=== PATIENT | female | born 1955 | race Caucasian/White ===

== ENCOUNTER 2018-01-08 01:05 | Outpatient (CLI) | payer OTHER, SELFPAY ==
[2018-01-08 08:55] LABS: Hemoglobin A1C 7.3 % (4.5-6.2)
== END 2018-01-08 01:25 ==
PROVIDERS: PCP Family Medicine; Visit Provider Family Medicine
DX: E11.9 Type 2 diabetes mellitus without complications (principal)
CPT/HCPCS: 36415; 83036

== ENCOUNTER 2018-02-02 09:40 | Day surgery (SDC) | payer OTHER, SELFPAY ==
[2018-02-02 10:07] VITALS: BP 178/83; PULSE 67; RESP 18; TEMP 37; O2SAT 97
[2018-02-02] MEDS: Lactated Ringers 1,000 ML 30 ML IV (10:17)
--- NOTE | 2018-02-02 11:10 | W.COLOREPORT ---
Date of service: 02/02/18 Time of Service: 13:33 Colonoscopy Report Date of procedure: 02/02/18 Pre-op diagnosis general: Family history of colorectal cancer Post-op diagnosis procedure note: other (Normal colon to the cecum) Procedure: Colonoscopy to the cecum Surgeon: Earnest Spangler Anesthesia proc note operative: MAC (Carlos Helm CRNA; ASA 2, Mallampati class II) Estimated blood loss (mL): 0 Pathology: none sent Disposition: same day Indications: 62-year-old woman presenting for colorectal cancer screening with family history of colorectal cancer. Her father had colon cancer. Her last colonoscopy was 2012 and unremarkable. She has been asymptomatic since her last colonoscopy except for more complaints of constipation. The colonoscopy procedure was reviewed with her, and the risks discussed. All her questions were answered to her satisfaction. Consent was obtained to proceed with colonoscopy. Prep: Miralax/Dulcolax (Prep quality good) Findings: In examining the colon from cecum to anus, no abnormalities were found Procedure Description: The patient was seen in the day surgery waiting area. Her identification was confirmed, and procedure check. She was then brought to the procedure room. Monitoring for telemetry, blood pressure, oxygen saturation, and end tidal CO2 monitoring were applied. An appropriate time out was performed to confirm, identification, allergies, medication, procedure, was performed. Sedation was titrated for affect by the BUSINESS ADVISOR; Once adequate sedation was achieved, I performed a inspection of the external perineum, and a digitial rectal examination. No significant external abnormalities were noted. On digital rectal examination, there was no blood, no masses, good rectal tone. I advanced the colonoscope from the anus to the cecum under direct visualization. The cecum was identified by the ileal-cecal valve, and the appendiceal orifice. The scope was then withdrawn in circumferential manner from the cecum to the rectum. No abnormalites were noted in the colon. The scope was then withdrawn into the rectum, and retroflexed. No abnormalities were noted of the rectum or anorectal junction. The scope was then withdrawn, terminating the procedure. There were no complications during the procedure, and the patient tolerated the procedure well. She was returned to the day surgery recovery area in good condition. Plan: Will continue with routine screening for colorectal cancer according to current consensus guidelines, which is currently 5 years with a family history of colorectal cancer
--- NOTE | 2018-02-02 13:37 | W.PM.DSUDISC ---
Discharge Plan Disposition Patient Disposition: HOME Condition: Good Discharge Details Reason For Visit: Family history of colon cancer Attending Provider: Earnest Spangler Primary Care Provider: Deana William Home Meds and New Rx's Prescriptions: Continue atorvastatin 20 mg tablet 20 mg PO DAILY RF: 0 metformin 1,000 mg tablet 1,000 mg PO BID Qty: 180 RF: 12 blood sugar diagnostic [OneTouch Ultra Test] 1 EACH strip 1 ea Miscellaneous DAILY Qty: 100 RF: 3 lancets [OneTouch Delica Lancets] 1 EACH misc 1 ea Miscellaneous DAILY Qty: 100 RF: 3 aspirin [Aspirin Low-Strength] 81 MG tablet,chewable 81 mg PO DAILY RF: 0 losartan-hydrochlorothiazide 1 EACH tablet 1 tab-cap PO DAILY Qty: 90 RF: 12 Discharge Instructions Instructions: Colonoscopy (DC) Activity:: Activity as Tolerated Diet:: As Tolerated Discharge Orders Discharge Orders: Discharge Order (Routine); Ordered 02/02/18 Ordered By: Earnest Spangler DS: Diagnosis Discharge Diagnosis (1) Family history of colon cancer in father: Status: Acute Asessment and Plan: Colonoscopy performed: Colonoscopy Report Date of procedure: 02/02/18 Pre-op diagnosis general: Family history of colorectal cancer Post-op diagnosis procedure note: other (Normal colon to the cecum) Procedure: Colonoscopy to the cecum Surgeon: Earnest Spangler Anesthesia proc note operative: MAC (Carlos Helm CRNA; ASA 2, Mallampati class II) Estimated blood loss (mL): 0 Pathology: none sent Disposition: same day Indications: 62-year-old woman presenting for colorectal cancer screening with family history of colorectal cancer. Her father had colon cancer. Her last colonoscopy was 2012 and unremarkable. She has been asymptomatic since her last colonoscopy except for more complaints of constipation. The colonoscopy procedure was reviewed with her, and the risks discussed. All her questions were answered to her satisfaction. Consent was obtained to proceed with colonoscopy. Prep: Miralax/Dulcolax (Prep quality good) Findings: In examining the colon from cecum to anus, no abnormalities were found Procedure Description: The patient was seen in the day surgery waiting area. Her identification was confirmed, and procedure check. She was then brought to the procedure room. Monitoring for telemetry, blood pressure, oxygen saturation, and end tidal CO2 monitoring were applied. An appropriate time out was performed to confirm, identification, allergies, medication, procedure, was performed. Sedation was titrated for affect by the SKIN CARE CONSULTANT; Once adequate sedation was achieved, I performed a inspection of the external perineum, and a digitial rectal examination. No significant external abnormalities were noted. On digital rectal examination, there was no blood, no masses, good rectal tone. I advanced the colonoscope from the anus to the cecum under direct visualization. The cecum was identified by the ileal-cecal valve, and the appendiceal orifice. The scope was then withdrawn in circumferential manner from the cecum to the rectum. No abnormalites were noted in the colon. The scope was then withdrawn into the rectum, and retroflexed. No abnormalities were noted of the rectum or anorectal junction. The scope was then withdrawn, terminating the procedure. There were no complications during the procedure, and the patient tolerated the procedure well. She was returned to the day surgery recovery area in good condition. Plan: Will continue with routine screening for colorectal cancer according to current consensus guidelines, which is currently 5 years with a family history of colorectal cancer.
[2018-02-02 13:59] VITALS: BP 142/83; PULSE 63; RESP 16; TEMP 36.9; O2SAT 95
== END 2018-02-02 14:25 | disposition home or self-care (01) ==
PROVIDERS: PCP Family Medicine; Visit Provider Surgery
PROC: 0DJD8ZZ Inspection of Lower Intestinal Tract, Via Natural or Artificial Opening Endoscopic (ICD-10-PCS; CPT 45378; principal; 2018-02-02 11:45)
DX: Z12.11 Encounter for screening for malignant neoplasm of colon (principal); Z80.0 Family history of malignant neoplasm of digestive organs; E11.9 Type 2 diabetes mellitus without complications; Z79.84 Long term (current) use of oral hypoglycemic drugs; I10 Essential (primary) hypertension
CPT/HCPCS: 45378; J2250; J3010

== ENCOUNTER 2018-06-01 02:28 | Outpatient (CLI) | payer OTHER, SELFPAY ==
[2018-06-01 10:09] LABS: Hemoglobin A1C 6.8 % (4.5-6.2)
== END 2018-06-01 02:48 ==
PROVIDERS: PCP Family Medicine; Visit Provider Family Medicine
DX: E11.9 Type 2 diabetes mellitus without complications (principal)
CPT/HCPCS: 83036

== ENCOUNTER 2018-06-15 00:32 | Outpatient (CLI) | payer OTHER, SELFPAY ==
--- NOTE | 2018-06-15 09:19 | DI.RAD_ITS ---
SYMPTOM/DIAGNOSIS: LT SHOULDER PAIN, M79.602, LT ARM PAIN LEFT SHOULDER: There is mild spurring at the tip of the acromion and AC joint. The axillary view is suboptimal. There is moderate spurring of the glenoid. The joint space appears well maintained. There is mild spurring at the greater tuberosity. No tendon or joint space calcifications are seen. The humeral head appears normally positioned. IMPRESSION: Mild to moderate degenerative changes.
== END 2018-06-15 00:52 ==
PROVIDERS: PCP Family Medicine; Visit Provider Family Medicine
DX: M79.602 Pain in left arm (principal); M25.512 Pain in left shoulder; M19.012 Primary osteoarthritis, left shoulder
CPT/HCPCS: 73030

== ENCOUNTER 2018-12-05 01:41 | Outpatient (CLI) | payer OTHER, SELFPAY ==
[2018-12-05 08:53] LABS: Hemoglobin A1C 7.1 % (4.5-6.2)
[2018-12-05 09:44] LABS: Microalb ug/mg Crea 4.6 ug/mg Cr
[2018-12-05 09:47] LABS: ALT 67 U/L (12-78); AST 37 U/L (15-37); Albumin 3.6 g/dL (3.4-5.0); Alkaline Phosphatase 101 U/L (46-116); Anion Gap 9.5 mmol/L (3-11); BUN 16 mg/dL (7-18); Bilirubin, Total 0.5 mg/dL (0.2-1.0); CO2 28.5 mmol/L (21.0-32.0); CREATININE 0.85 mg/dL (0.55-1.02); Calcium 9.1 mg/dL (8.5-10.1); Calculated LDL 97 mg/dL; Chloride 103 mmol/L (98-107); Cholesterol 159 mg/dL (50-200); Glucose 145 mg/dL (70-100); HDL Cholesterol 39 mg/dL (40-60); Potassium 4.2 mmol/L (3.5-5.1); Sodium 141 mmol/L (136-145); Total Protein 6.5 g/dL (6.4-8.2); Triglyceride 117 mg/dL (30-150)
== END 2018-12-05 02:01 ==
PROVIDERS: PCP Family Medicine; Visit Provider Family Medicine
DX: E11.9 Type 2 diabetes mellitus without complications (principal); I10 Essential (primary) hypertension; Z00.00 Encounter for general adult medical examination without abnormal findings
CPT/HCPCS: 36415; 80053; 80061; 83721; 82043; 82570; 83036

== ENCOUNTER 2019-01-25 00:08 | Outpatient (CLI) | payer OTHER, SELFPAY ==
--- NOTE | 2019-01-25 12:44 | DI.MAMMO_ITS ---
EXAM: MAMMO SCREENING CLINICAL HISTORY: screening Z12.39. TECHNIQUE: Mammograms were interpreted according to the usual protocol including computer analysis w [facility] CAD system, tomosynthesis and C-view imaging. FINDINGS: The breasts are heterogeneously dense. No dominant mass or clumped microcalcification identified in e ither breast. No change in appearance in comparison with previous examinations including January 04 IMPRESSION: No specific evidence of malignancy at this time. Routine screening examinations are suggested at year ly intervals in this age group according the ACS ACR guidelines. Category 1. Breast density, category C. BI-RADS Cat 1 - Negative. Breast Density - Category C - Heterogeneously dense.
== END 2019-01-25 00:28 ==
PROVIDERS: PCP Family Medicine; Visit Provider Family Medicine
DX: Z12.31 Encounter for screening mammogram for malignant neoplasm of breast (principal)
CPT/HCPCS: 77063; 77067

== ENCOUNTER 2019-05-27 01:54 | Outpatient (CLI) | payer OTHER, SELFPAY ==
[2019-05-27 08:51] LABS: Hemoglobin A1C 7.3 % (3.8-5.6)
== END 2019-05-27 02:14 ==
PROVIDERS: PCP Family Medicine; Visit Provider Family Medicine
DX: E11.9 Type 2 diabetes mellitus without complications (principal)
CPT/HCPCS: 36415; 83036

== ENCOUNTER 2020-03-04 00:22 | Outpatient (CLI) | payer OTHER, SELFPAY ==
[2020-03-06 23:56] LABS: Patient Race White; SARS-CoV-2 RNA Undetected (Undetected); SARS-CoV-2 Specimen Source Nasal
== END 2020-03-04 00:42 ==
PROVIDERS: PCP Family Medicine; Visit Provider Family Medicine
DX: Z11.59 Encounter for screening for other viral diseases (principal)
CPT/HCPCS: U0003

== ENCOUNTER 2020-03-11 02:49 | Outpatient (CLI) | payer OTHER, SELFPAY ==
[2020-03-11 08:53] LABS: Hemoglobin A1C 7.4 % (<5.7)
[2020-03-11 09:03] LABS: ALT 88 U/L (14-59); AST 49 U/L (15-37); Albumin 3.7 g/dL (3.4-5.0); Alkaline Phosphatase 98 U/L (46-116); Anion Gap 11.9 mmol/L (3-11); BUN 17 mg/dL (7-18); Bilirubin, Total 0.6 mg/dL (0.2-1.0); CO2 25.1 mmol/L (21.0-32.0); CREATININE 1.01 mg/dL (0.55-1.02); Calcium 8.8 mg/dL (8.5-10.1); Calculated LDL 97 mg/dL (<100); Chloride 107 mmol/L (98-107); Cholesterol 162 mg/dL (<200); Estimated GFR 55.18 (mL/min/1.73m2); Glucose 147 mg/dL (74-106); HDL Cholesterol 43 mg/dL (40-60); Potassium 4.4 mmol/L (3.5-5.1); Sodium 144 mmol/L (136-145); Total Protein 6.5 g/dL (6.4-8.2); Triglyceride 114 mg/dL (<150)
[2020-03-11 13:04] LABS: COMMENT (LAB VIEW ONLY) 90.03 mg/dL; Microalb ug/mg Crea 5.2 ug/mg Cr
== END 2020-03-11 03:09 ==
PROVIDERS: PCP Family Medicine; Visit Provider Family Medicine
DX: Z00.00 Encounter for general adult medical examination without abnormal findings (principal); I10 Essential (primary) hypertension; E78.00 Pure hypercholesterolemia, unspecified; E11.9 Type 2 diabetes mellitus without complications
CPT/HCPCS: 36415; 80053; 80061; 82043; 82570; 83036

== ENCOUNTER 2020-04-01 09:25 | Outpatient (CLI) | payer OTHER, SELFPAY ==
[2020-04-02 21:25] LABS: COVID-19 RT-PCR UVMMC Result Positive (Negative)
== END 2020-04-01 09:45 ==
PROVIDERS: PCP Family Medicine; Visit Provider Family Medicine
DX: Z20.828 Contact with and (suspected) exposure to other viral communicable diseases (principal)
CPT/HCPCS: U0003

== ENCOUNTER 2020-06-09 02:00 | Outpatient (CLI) | payer OTHER, SELFPAY ==
[2020-06-10 12:55] LABS: COVID-19 RT-PCR UVMMC Result Negative (Negative)
== END 2020-06-09 02:01 | disposition home or self-care (01) ==
LOC: LBO 02:00
PROVIDERS: PCP Family Medicine; Visit Provider Family Medicine
DX: Z20.822 Contact with and (suspected) exposure to COVID-19 (principal)
CPT/HCPCS: U0003

== ENCOUNTER 2020-07-03 03:14 | Outpatient (CLI) | payer OTHER, SELFPAY ==
[2020-07-04 14:22] LABS: COVID-19 RT-PCR UVMMC Result Negative (Negative)
== END 2020-07-03 03:15 | disposition home or self-care (01) ==
LOC: LBO 03:14
PROVIDERS: PCP Family Medicine; Visit Provider Family Medicine
DX: Z20.822 Contact with and (suspected) exposure to COVID-19 (principal)
CPT/HCPCS: U0003

== ENCOUNTER 2021-01-26 01:04 | Outpatient (CLI) | payer MEDICARE, OTHER, SELFPAY ==
--- NOTE | 2021-01-26 07:15 | DI.MAMMO_ITS ---
Exam(s) MAMMO SCREENING EXAM: MAMMO SCREENING CLINICAL HISTORY: screening,Z12.39. TECHNIQUE: Bilateral full field digital CC and MLO mammographic images were obtained with 3D tomosyn thesis and utilizing computer aided detection (CAD). COMPARISON: Prior mammograms dating back to 2012, the most recent being January 2019. FINDINGS: Fibroglandular tissue pattern is again noted be moderately dense, this decreasing the sensitivity holly mogram for finding hidden underlying lesions. Asymmetric density in the medial aspect of right breast is noted located 7 cm in from the nipple, med ial of center on the 3D cc imaging. More evident than on prior studies. There is a skin mole inferiorly in the right breast, unchanged from prior studies. No new malignant-appearing microcalcification groups in either breast. There is no significant architectural distortion nor skin thickening-retraction. IMPRESSION: 1. No radiographic evidence of malignancy in left breast. 2. Medial) asymmetric density in the right breast-possible nodule. Spot compression CC view and poss ible ultrasound recommended BI-RADS Category 0 - Assessment Incomplete: Need additional imaging evaluation Breast Density - Category C - Heterogeneously dense Breast density Category C or D implies that the patient has dense breast tissue. Dense breast tissue can make it harder to find cancer on a mammogram. Dense breast tissue is also associated with an incr eased risk of breast cancer. This information about the result of the mammogram report was provided to the patient to raise their awareness. Use this report when you speak with the patient about their risks for breast cancer, which includes their family history. At that time, you may recommend additional screening tests (Ultrasoun d or MRI) as these tests may add significant information. A negative radiographic report should not delay biopsy if a dominant or clinically suspicious mass is present. Up to ten percent of cancers are not identified on mammography. A negative report may reinforce clinical impression. Adenosis and dense breasts may obscure an underlying neoplasm. False positive reports average 6 to 10%. Patient will receive a letter notifying them of these results.
== END 2021-01-26 01:24 ==
PROVIDERS: PCP Family Medicine; Visit Provider Family Medicine
DX: Z12.31 Encounter for screening mammogram for malignant neoplasm of breast (principal); R92.8 Other abnormal and inconclusive findings on diagnostic imaging of breast
CPT/HCPCS: 77063; 77067

== ENCOUNTER 2021-02-04 02:10 | Outpatient (CLI) | payer MEDICARE, OTHER, SELFPAY ==
--- NOTE | 2021-02-04 | DI.MAMMO_ITS ---
Exam(s) MG MAMMO SCREEN CALL BACK UNI EXAM: MG MAMMO SCREEN CALL BACK UNI AND COMPLETE RIGHT BREAST ULTRASOUND CLINICAL HISTORY: F/U MAMMO, RT BREAST ASYMMETRIC DENSITY,MORE EVIDENT. TECHNIQUE: Unilateral spot mammographic images obtained with 3D tomosynthesisand utilizing computer aided detection (CAD). . Complete RIGHT breast Ultrasound was also performed, including all 4 quadrants, the retroareolar abdelrahman on, and the ipsilateral axilla. COMPARISON: Prior mammograms were reviewed. This additional imaging was performed due to findings described on the recent screening mammogram of 02/04/21. FINDINGS: Additional mammographic views performed todayrender this area less concerning. Ultrasound performed today reveals a finding at 3-4 o'clock position which has the appearance of a 9 x 4 millimeter conglomeration microcyst. This may correspond to the finding on the mammogram (which i s less impressive on spot compression view today). There are no other focal findings on ultrasound of all 4 quadrants nor in the immediate retroareolar region. Scanning of the ipsilateral axilla is negative for adenopathy.. IMPRESSION: Benign-appearing findings in the right breast as described above. Appropriate follow-up is repeat right breast mammogram and ultrasound in 6 months.. The patient was informed of these findings and recommendations prior to leaving the department today. BI-RADS Category 3 - 6 month - Probably Benign Finding: Recommend follow-up mammography in 6 months Breast Density - Category C - Heterogeneously dense Breast density Category C or D implies that the patient has dense breast tissue. Dense breast tissue can make it harder to find cancer on a mammogram. Dense breast tissue is also associated with an incr eased risk of breast cancer. This information about the result of the mammogram report was provided to the patient to raise their awareness. Use this report when you speak with the patient about their risks for breast cancer, which includes their family history. At that time, you may recommend additional screening tests (Ultrasoun d or MRI) as these tests may add significant information. A negative radiographic report should not delay biopsy if a dominant or clinically suspicious mass is present. Up to ten percent of cancers are not identified on mammography. A negative report may reinforce clinical impression. Adenosis and dense breasts may obscure an underlying neoplasm. False positive reports average 6 to 10%. Patient will receive a letter notifying them of these results.
--- NOTE | 2021-02-04 | DI.US_ITS ---
Exam(s) US BREAST RT COMPLETE EXAM: US BREAST RT COMPLETE CLINICAL HISTORY: RT asymetric density. TECHNIQUE: Complete ultrasound of the right breast was performed including all 4 quadrants, the retr oareolar region, and the ipsilateral axilla. COMPARISON: Prior mammograms were reviewed. FINDINGS: At the 3-4 o'clock position there is a 9 x 4 millimeter conglomeration of microcysts. This may corres pond to the finding on the mammogram. There are no other focal findings in all 4 quadrants nor in the retroareolar region. No axillary adenopathy IMPRESSION: Benign-appearing findings Appropriate follow-up is repeat right breast imaging in 6 months to include repeat right breast mammo gram and ultrasound.. BI-RADS Category 3 - 6 month - Probably Benign Finding: Recommend follow-up mammography in 6 months Breast Density - Category C - Heterogeneously dense Breast density Category C or D implies that the patient has dense breast tissue. Dense breast tissue can make it harder to find cancer on a mammogram. Dense breast tissue is also associated with an incr eased risk of breast cancer. This information about the result of the mammogram report was provided to the patient to raise their awareness. Use this report when you speak with the patient about their risks for breast cancer, which includes their family history. At that time, you may recommend additional screening tests (Ultrasoun d or MRI) as these tests may add significant information. A negative radiographic report should not delay biopsy if a dominant or clinically suspicious mass is present. Up to ten percent of cancers are not identified on mammography. A negative report may reinforce clinical impression. Adenosis and dense breasts may obscure an underlying neoplasm. False positive reports average 6 to 10%. Patient will receive a letter notifying them of these re
== END 2021-02-04 02:30 ==
PROVIDERS: PCP Family Medicine; Visit Provider Family Medicine
DX: R92.8 Other abnormal and inconclusive findings on diagnostic imaging of breast (principal); N60.01 Solitary cyst of right breast
CPT/HCPCS: 76642; 77063; 77067

== ENCOUNTER 2021-10-25 02:56 | Outpatient (CLI) | payer MEDICARE, OTHER, SELFPAY ==
[2021-10-25 09:01] LABS: Hemoglobin A1C 6.9 % (<5.7)
[2021-10-25 09:39] LABS: ALT 72 U/L (14-59); AST 48 U/L (15-37); Albumin 3.7 g/dL (3.4-5.0); Alkaline Phosphatase 87 U/L (46-116); Anion Gap 10.3 mmol/L (3-11); BUN 19 mg/dL (7-18); Bilirubin, Total 0.7 mg/dL (0.2-1.0); CO2 28.7 mmol/L (21.0-32.0); CREATININE 0.9 mg/dL (0.55-1.02); Calcium 9.5 mg/dL (8.5-10.1); Calculated LDL 105 mg/dL (<100); Chloride 102 mmol/L (98-107); Cholesterol 175 mg/dL (<200); Glucose 143 mg/dL (74-106); HDL Cholesterol 46 mg/dL (40-60); Potassium 3.9 mmol/L (3.5-5.1); Sodium 141 mmol/L (136-145); Triglyceride 124 mg/dL (<150)
== END 2021-10-25 02:57 | disposition home or self-care (01) ==
LOC: LBO 02:56
PROVIDERS: PCP Family Medicine; Visit Provider Family Medicine
DX: I10 Essential (primary) hypertension (principal); E78.00 Pure hypercholesterolemia, unspecified; E11.9 Type 2 diabetes mellitus without complications
CPT/HCPCS: 36415; 80053; 80061; 83036

== ENCOUNTER 2022-08-26 00:43 | Outpatient (CLI) | payer MEDICARE, OTHER, SELFPAY ==
--- NOTE | 2022-08-26 09:43 | DI.RAD_ITS ---
Exam(s) XR RIBS RT W PA LAT CHEST CLINICAL HISTORY: RT RIB pain for 3 weeks, no improvement,R07.81. COMPARISON: CR XR shoulder LT complete 2+V from 06/15/2018 TECHNIQUE:: PA and lateral views of the chest and four views of the right ribs were performed. FINDINGS: LUNGS:Clear. No pleural abnormality seen. HEART: Normal. MEDIASTINUM: Normal. BONES: No displaced rib fracture is seen. No thoracic compression fracture. Degenerative changes no lashay in the spine and right shoulder pain no bony destructive lesion is seen. OTHER FINDINGS: None. IMPRESSION: 1. Unremarkable radiographic appearance of the right ribs. 2. No acute pulmonary findings.
== END 2022-08-26 01:03 ==
PROVIDERS: PCP Family Medicine; Visit Provider Nurse Practitioner Family
DX: R07.81 Pleurodynia (principal)
CPT/HCPCS: 71046; 71100

== ENCOUNTER 2022-11-18 06:25 | Day surgery (SDC) | payer MEDICARE, OTHER, SELFPAY ==
--- NOTE | 2022-11-18 06:24 | W.ANESPRE ---
General Info Date of Service Date Performed: 11/18/22 Height: 5 ft 6 in Weight: 99.1 kg Body Mass Index (BMI): 35.2 Surgical Procedure: Operation Date: 11/18/22 07:40 Proposed Procedure Side Surgeon p Cataract Extraction with IOL Implant Left Raghav Birmingham MD Meds Allergies and Home Medications Allergies Allergy/AdvReac Type Severity Reaction Status Date / Time lisinopril AdvReac Intermediate cough Verified 11/18/22 06:52 oxycodone HCl [From Percocet] AdvReac Mild Nausea Verified 11/18/22 06:52 Home Medication Medication Instructions Recorded blood sugar diagnostic (SimpleOrder #100 strips 02/21/13 Ultra Test strips) lancets 33 gauge (S[employer]iot[employer] PharmalabTouch Delica #100 ea 02/21/13 Lancets) aspirin 81 mg chewable tablet 81 mg PO DAILY 04/15/13 (Aspirin Low-Strength) ibuprofen 200 mg capsule 200 mg PO QID PRN 02/28/18 atorvastatin 20 mg tablet 20 mg PO DAILY #90 tabs 11/08/21 hydrochlorothiazide 12.5 mg tablet 12.5 mg PO QAM #90 tabs 11/08/21 losartan 50 mg tablet 50 mg PO DAILY #90 tabs 11/08/21 metformin 1,000 mg tablet 1,000 mg PO BID #180 tab-caps 11/08/21 cyclobenzaprine 5 mg tablet 5 mg PO TID PRN back pain #10 tabs 09/15/22 Current Visit Medications: Current Medications Generic Name Dose Route Start Last Admin Trade Name Freq PRN Reason Stop Dose Admin Acetaminophen 1,000 mg 11/18/22 06:00 Acetaminophen 500 Mg Tab PO 12/18/22 05:59 Q4H PRN PRN Balanced Salt Solution 500 ml 11/18/22 06:00 Balanced Salt Soln.-Plus 500 Ml Bag OP 12/18/22 05:59 DIRECTED NASEEM Miscellaneous Medication 0 ml 11/18/22 06:00 Prednisolone 1%, Moxifloxacin 0.5%, Nepafenac 0.1% 5ml Btl OS 12/18/22 05:59 DIRECTED NASEEM Miscellaneous Medication 0 ml 11/18/22 06:00 Tropicam./Phenyleph. (1/2.5%) 5 Ml Btl OS 12/18/22 05:59 DIRECTED NASEEM Tetracaine HCl 0 ml 11/18/22 06:00 Tetracaine 0.5% 4 Ml Btl OS 12/18/22 05:59 DIRECTED [facility] PFSH Active Problems Active Problems: Problem Status Onset Code Posterior subcapsular age-related cataract of left eye H25.042 Nuclear age-related cataract, left eye H25.12 Abnormal mammogram R92.8 Shoulder pain M25.519 Left arm pain M79.602 Annual physical exam Z00.00 Family history of colon cancer in father Z80.0 Lacunar infarction 02/28/13 I63.9 Internal hemorrhoids without complication 03/06/13 K64.8 Hypercholesterolemia 02/28/13 E78.00 Essential hypertension 06/25/13 I10 Diverticulosis of large intestine without diverticulitis 03/06/13 K57.30 Diabetes mellitus 02/12/13 E11.9 Medical History Medical History History of ankle fracture 04/17/12 closed reduction History of fracture of ankle Numbness 02/26/13 Numbness (02/26/13) Surgical History Surgical History Colonoscopy - MAC (03/05/13) [facility] Fracture, Closed Treatment (11/16/12) ANKLE H/O colonoscopy Dr Spangler, negative, repeat in five years due to family history of colon cancer. History of hysterectomy 04/17/83 History of hysterectomy Hysterectomy, Laproscopic (~1983) Tobacco Smoking/Tobacco Use Status: Never Passive smoking exposure: Yes Second hand exposure: Yes Alcohol Alcohol Intake: current Alcohol intake frequency: a few times a month Alcohol type: beer Substance Use Substance use: Never Substance use type: does not use Vital Signs and Lab Results Lab Results Blood Type / Crossmatch: No Data to Display Complete Blood Count: No Data to Display Complete Metabolic Panel: Hemoglobin A1c 6.9 % H 11/07/22 10:02 Liver Function Panel: No Data to Display Coagulation Panel: No Data to Display Cardiac Panel: No Data to Display Arterial Blood Gas: No Data to Display Venous Blood Gas: No Data to Display Pancreas Panel: No Data to Display Thyroid Panel: No Data to Display Infectious Disease: No Data to Display Blood Cultures: No Data to Display Toxicology Panel: No Data to Display Imaging and Studies Imaging and Studies Study information below may be from another EMR and interpreted by another provider. Please see original notes in EMR for more complete details. Echocardiogram Summary: ECHOCARDIOGRAM REPORT PATIENT NAME: IRA NARVAEZ AUNFELA #: [id number] ADMITTING PROVIDER: SAVANAH COLEMAN, MYATURNER #: [id number] PRIMARY CARE PROVIDER:DEANA WILLIAM MD, DCDATE OF SERVICE: 04/05/13 : 1955 DATE: April 05, 2013 OUT-PATIENT ORDERING PHYSICIAN: Dr. Deana William HEIGHT: 5 FT 6 IN WEIGHT: 200 LBS BSA: m2 STUDY INDICATIONS: Cerebrovascular accident, right sided weakness/numbness, 02/04/13. Hypertension. Borderline type II diabetes mellitus. FINDINGS: LEFT VENTRICLE/LVEF: Normal function. Ejection fraction 60-65%, mild concentric left ventricular hypertrophy. RIGHT VENTRICLE: Appears normal. AORTIC VALVE: Trileaflet, mildly sclerotic, no aortic regurgitation, no aortic stenosis, normal aortic root size. MITRAL VALVE: No mitral regurgitation, no mitral stenosis. TRICUSPID VALVE: Normal. RSV/PA/RIGHT ATRIAL PRESSURE: 10 + 5 = 15 mmHg. PULMONIC VALVE: Normal. ATRIA: Normal size. DIASTOLIC INDICES: E/E-prime lateral 5, medial 8. GREAT VESSELS: Within normal limits, normal aortic root size. PERICARDIUM: No effusion. Summary: Normal left ventricle. Ejection fraction 60-65%. Mild concentric left ventricular hypertrophy, no significant valvular abnormality. Normal atria. No previous study. Measurements: LVESD 23 mm LVEDD 39 mm IVS 10 mm PW 11 mm Ascending Aorta 33 mm AO. Root 34 mm AV 19 mm AO Velocity 1.4 m/sec LA 15 cm sq. RA 12 cm sq. Right atrial pressure 10 mmHg AV-PK/M 8/5 mmHg LVOT size 19 mm LVOT gradient 5/3 mmHg Deceleration time 164 msec Isovolumic relaxation time 83 msec E/A ratio 1.0 IVC collapses - Yes Sinus Rhythm. Dictated by: GORDO PAVON MD Dictated:: [id number]<Electronically signed by GORDO PAVON MD> Transcribed Date: 04/08/13 Transcribed Time: 1025By: This is privileged, confidential information, intended only for the provider named. Any use or distribution by any person other than this provider is strictly prohibited. If you receive this report in error, please notify us immediately at [phone] and return the original report to us at the address above. Thank you. Anesthesia Assessment and Plan Anesthesia History Personal History: PONV and Delayed Emergence Family History: Other Exercise Tolerance Exercise Tolerance: Metabolic Equivalents>4 Pertinent Negatives Pertinent Negatives: No Symptoms of GERD, No Major Cardiovascular Symptoms or Complaints and No Major Pulmonary Symptoms or Complaints Cardiac & Pulmonary Exam Cardiac Exam: Normal S1/S2 Heart Sounds Pulmonary Exam: Clear Bilateral Breath Sounds Implantable Cardiac Device Does patient have a Pacemaker or an ICD?: No Airway Exam Known Difficult Airway: No Mallampati Class: 2 Mouth Opening: Normal (> 3cm) Thyromental Distance: Greater than 3 cm Neck Range of Motion: Full ROM Neck Circumference: Normal Teeth Condition: Normal Dentition ASA Classification ASA Score: ASA 2 Emergency Case?: No NPO Status NPO Status: NPO Clears >2 hours, Solids >8 hours Anesthesia Plan Resuscitation Status: Full Code Anesthesia Technique: MAC Anesthesia Airway Planned: Natural Airway Monitors Used: Standard Monitors Preoperative Comments:: Discussed plan: no MKO
[2022-11-18 06:45] VITALS: BP 136/70; PULSE 74; RESP 16; TEMP 35.2; O2SAT 96
[2022-11-18] MEDS: Tropicam./Phenyleph. (1/2.5%) 5 ML BTL OS ×3 (06:50→07:06)
[2022-11-18 07:04] VITALS: BMI 35.2
[2022-11-18] MEDS: Lidocaine 1% Pres-Free 5 ML VIAL (07:49)
[2022-11-18] MEDS: Phenylephrine/Lidocaine (15/10) MG/ML 1 ML VIAL (07:50)
[2022-11-18] MEDS: Duovisc Viscoelastic System EACH 1 EACH (07:51)
[2022-11-18] MEDS: Povidone-Iodine Ophth 30 ML BTL (07:52)
[2022-11-18] MEDS: Balanced Salt Soln.-PLUS 500 ML BAG OP (07:52)
[2022-11-18] MEDS: Tetracaine 0.5% 4 ML BTL OS (07:53)
--- NOTE | 2022-11-18 07:58 | W.PM.DSUDISC ---
Date of service: 11/18/22 Time of Service: 07:58 Discharge Plan Disposition Patient Disposition: Home Discharge Details Attending Provider: Raghav Birmingham Primary Care Provider: Deana William Home Meds and New Rx's Prescriptions: No Action ibuprofen 200 mg capsule 200 mg PO QID PRN atorvastatin 20 mg tablet 20 mg PO DAILY Qty: 90 4RF hydrochlorothiazide 12.5 mg tablet 12.5 mg PO QAM Qty: 90 4RF losartan 50 mg tablet 50 mg PO DAILY Qty: 90 4RF metformin 1,000 mg tablet 1,000 mg PO BID Qty: 180 12RF Rx Instructions: hold until pt calls for renewal (DME) OneTouch Ultra Test 1 EACH strip 1 ea Miscellaneous DAILY Qty: 100 Rx Instructions: mini test strips Dx Diabetes 250.00 (DME) lancets [OneTouch Delica Lancets] 1 EACH misc 1 ea Miscellaneous DAILY Qty: 100 aspirin [Aspirin Low-Strength] 81 MG tablet,chewable 81 mg PO DAILY cyclobenzaprine 5 mg tablet 5 mg PO TID PRN (Reason: back pain) Qty: 10 0RF Discharge Instructions Stand Alone Forms: Post-op Topical Cataract, Tio Llamasey (DSU) Discharge Orders Discharge Orders: Discharge Order (Routine); Ordered 11/18/22 Ordered By: Raghav Birmingham DS: Diagnosis Discharge Diagnosis (1) Posterior subcapsular age-related cataract of left eye: Status: Resolved (2) Nuclear age-related cataract, left eye: Status: Resolved
--- NOTE | 2022-11-18 07:59 | ROE_ITS ---
Date of service: 11/18/22 Time of Service: 07:59 Operative Note Operative Note DATE OF PROCEDURE: 11/18/22 PRE-OP DIAGNOSIS: Nuclear/posterior subcapsular cataract, left eye POST-OP DIAGNOSIS: same PROCEDURE: Cataract extraction using phacoemulsification with intraocular lens implant, left eye SURGEON: Raghav Birmingham ANESTHESIA TYPE: Local By Surgeon and MAC Refer to Anesthesia Record PATHOLOGY: none sent COMPLICATIONS: None Patient was transported to: same day Patient's condition: stable Implants: Jesus Alberto and Jesus Alberto Tecnis Eyhance [id number] Indications: Progressive decreased vision due to cataract, left eye Procedure Description: CATARACT SURGERY OPERATIVE REPORT PREOPERATIVE DIAGNOSIS: 1. Nuclear/posterior subcapsular cataract, left eye POSTOPERATIVE DIAGNOSIS: Same OPERATION: 1. Cataract extraction using phacoemulsification with posterior chamber intraocular lens implant, left eye. IOL: IOL Retail Stocker/Model: Jesus Alberto & Jesus Alberto Tecnis Eyhance DIB00 IOL Power: + 24.0 diopters IOL Serial Number: [id number] Optic Diameter: 6.0 mm Haptic/Overall Diameter: 13.0 mm PHACO INFO: Piotr TissueInformaticsurion Vision System with OZil and Active Fluidics Cumulative Dispersed Energy (CDE): 11.46 seconds SURGEON: Raghav Birmingham MD, LEANA ANESTHESIA: Monitored A [facility] (MAC), with local sub-tenon's anesthetic infiltration COMPLICATIONS: None SPECIMENS: None INDICATIONS FOR PROCEDURE: The patient is a 67-year-old lady with history of diminished visual acuity in her left eye secondary to the development of nuclear/posterior subcapsular cataract. She is significantly symptomatic that she desires cataract surgery and attempt to improve and maximize her vision. See office notes for detailed information. PROCEDURE: The correct surgical eye was identified and marked as the left eye and the pupil was dilated in the preoperative area using mydriatics and cycloplegics. The dilated pupil size was 7.0 mm. The patient elected to proceed without oral sedation. The patient was brought to the operating room where cardiopulmonary monitoring was instituted and surgical time-out was performed, confirming the correct operative eye and IOL power. Topical anesthesia was administered and ophthalmic povidone-iodine 5% was instilled into the conjunctival fornices. The judson-ocular area was prepped with Betadine 10% solution and draped in the usual sterile fashion for intraocular surgery, including an aperture drape. A Tegaderm transparent film dressing was cut in half and used to cover the lashes and lid margins. Care was taken to sequester the lashes and lid margins under the Tegaderm dressing. A lid speculum was placed between the lids of the operative eye and the Piotr LuxOR Revalia operating microscope was maneuvered into position. Ton scissors were then used to make a conjunctival buttonhole approximately 6mm posterior to the limbus in the inferonasal quadrant. Blunt dissection was carried out to expose bare sclera, and a blunt-tipped sub-tenon?s anesthesia can nula was introduced and passed posteriorly along the globe where non-preserved plain lidocaine was injected into posterior sub-Tenon?s space. A sideport knife was used to make a paracentesis port. Intraocular phenylephrine/lidocaine was injected into the anterior chamber.. The anterior chamber was filled with viscoelastic. A keratome knife was used to construct a 2-plane near-clear corneal tunnel extending 2.0mm into clear cornea. A flap was raised on the anterior capsule and capsulorhexis forceps were used to complete a continuous curvilinear capsulorhexis of 5.0 mm. Balanced salt solution was then used to perform cortical cleaving hydrodissection and nuclear hydrodelineation until the lens could be freely rotated within the capsular bag. The lens nucleus was then disassembled and removed within the capsular bag and iris plane using phacoemulsification. Residual cortical material was removed using the irrigation/aspiration handpiece. The posterior capsule was carefully polished to remove as much residual lens epithelial cells as safely possible. The capsular bag was then inflated and the anterior chamber deepened with viscoelastic. The lens implant described above was inserted into the capsular bag using the Jesus Alberto and Jesus Alberto Simplicity pre-loaded injector. A Kuglen hook was used to dial the IOL into position. Residual viscoelastic was then removed first from posterior to the IOL, then from the anterior chamber using the I/A handpiece. The lens implant was noted to center nicely within the capsular bag. The incisions were stromally hydrated, and the anterior chamber was reformed using BSS. Then 0.5cc of moxifloxacin 1.0mg/ml were injected into the capsular bag and anterior chamber. The incisions were checked with a Weck spear and found to be secure. Several drops of ophthalmic povidone-iodine 5% were then applied to the eye followed by two drops of Imprimis combination prednisolone/moxifloxacin/nepafenac solution. The drapes were removed and a clear plastic protective eye shield was placed over the eye. The patient was then returned to Same Day Surgery in stable condition.
[2022-11-18 08:00] VITALS: BP 122/62; PULSE 68; RESP 16; TEMP 36.7; O2SAT 98
--- NOTE | 2022-11-18 08:22 | W.ANESPOSTOP ---
Postoperative Evaluation Date, Time and Location Date Performed: 11/18/22 Time Performed: 08:01 Patient Location: Day Surgery Unit Vital Signs Most Recent Imported Vital Signs: Most Recent Vital Signs Temp Pulse Resp BP Pulse Ox 36.7 C 68 16 122/62 98 11/18/22 08:00 11/18/22 08:00 11/18/22 08:00 11/18/22 08:00 11/18/22 08:00 Pain Score Most Recent Pain Score: Most Recent Pain Score Pain Level 0 11/18/22 08:00 Assessment Mental Status: Awake (Alert & Oriented to Patient Baseline) Airway and Respiratory Function: Patent airway with normal (patient baseline) respiratory exam Cardiovascular Function: Hemodynamically Stable Hydration Status: Adequately Hydrated Nausea & Vomiting: No Nausea or Vomiting Pain: Pt. Denies Any Pain Peripheral Nerve Block: Other (Local by Dr. Birmingham)
== END 2022-11-18 08:18 | disposition home or self-care (01) ==
LOC: SUR 06:25
PROVIDERS: PCP Family Medicine; Visit Provider Ophthalmology
PROC: (CPT 66984; principal; 2022-11-18 07:30)
DX: H25.042 Posterior subcapsular polar age-related cataract, left eye (principal); H25.12 Age-related nuclear cataract, left eye; I10 Essential (primary) hypertension
CPT/HCPCS: 66984; V2632

== ENCOUNTER 2022-12-02 06:31 | Day surgery (SDC) | payer MEDICARE, OTHER, SELFPAY ==
[2022-12-02 06:42] VITALS: BP 122/61; PULSE 82; RESP 16; TEMP 36.1; O2SAT 100
[2022-12-02] MEDS: Tropicam./Phenyleph. (1/2.5%) 5 ML BTL OD ×3 (06:55→07:05)
--- NOTE | 2022-12-02 07:00 | ANES.PREOP_ITS ---
General Info Date of Service Date Performed: 12/02/22 Height: 5 ft 6 in Weight: 100 kg Body Mass Index (BMI): 35.6 Surgical Procedure: Operation Date: 12/02/22 07:40 Proposed Procedure Side Surgeon p Cataract Extraction with IOL Implant Right Raghav Birmingham MD Meds Allergies and Home Medications Allergies Allergy/AdvReac Type Severity Reaction Status Date / Time lisinopril AdvReac Intermediate cough Verified 12/02/22 06:40 oxycodone HCl [From Percocet] AdvReac Mild Nausea Verified 12/02/22 06:40 Home Medication Medication Instructions Recorded blood sugar diagnostic ([employer] #100 strips 02/21/13 Ultra Test strips) lancets 33 gauge (SharingforceTouch Delica #100 ea 02/21/13 Lancets) aspirin 81 mg chewable tablet 81 mg PO DAILY 04/15/13 (Aspirin Low-Strength) ibuprofen 200 mg capsule 200 mg PO QID PRN 02/28/18 cyclobenzaprine 5 mg tablet 5 mg PO TID PRN back pain #10 tabs 09/15/22 atorvastatin 20 mg tablet 20 mg PO DAILY #90 tabs 11/24/22 hydrochlorothiazide 12.5 mg tablet 12.5 mg PO QAM #90 tabs 11/24/22 losartan 50 mg tablet 50 mg PO DAILY #90 tabs 11/24/22 metformin 1,000 mg tablet 1,000 mg PO BID #180 tab-caps 11/24/22 Current Visit Medications: Current Medications Generic Name Dose Route Start Last Admin Trade Name Freq PRN Reason Stop Dose Admin Acetaminophen 1,000 mg 12/02/22 06:00 Acetaminophen 500 Mg Tab PO 01/01/23 05:59 Q4H PRN PRN Balanced Salt Solution 500 ml 12/02/22 06:00 Balanced Salt Soln.-Plus 500 Ml Bag OP 01/01/23 05:59 DIRECTED NASEEM Miscellaneous Medication 0 ml 12/02/22 06:00 Prednisolone 1%, Moxifloxacin 0.5%, Nepafenac 0.1% 5ml Btl OD 01/01/23 05:59 DIRECTED NASEEM Miscellaneous Medication 0 ml 12/02/22 06:00 12/02/22 06:55 Tropicam./Phenyleph. (1/2.5%) 5 Ml Btl OD 01/01/23 05:59 1 drp DIRECTED NASEEM Administration Tetracaine HCl 0 ml 12/02/22 06:00 Tetracaine 0.5% 4 Ml Btl OD 01/01/23 05:59 DIRECTED NASEEM PFSH Active Problems Active Problems: Problem Status Onset Code Posterior subcapsular age-related cataract, right eye H25.041 Nuclear age-related cataract, right eye H25.11 Posterior subcapsular age-related cataract of left eye H25.042 Nuclear age-related cataract, left eye H25.12 Abnormal mammogram R92.8 Shoulder pain M25.519 Left arm pain M79.602 Annual physical exam Z00.00 Family history of colon cancer in father Z80.0 Lacunar infarction 02/28/13 I63.9 Internal hemorrhoids without complication 03/06/13 K64.8 Hypercholesterolemia 02/28/13 E78.00 Essential hypertension 06/25/13 I10 Diverticulosis of large intestine without diverticulitis 03/06/13 K57.30 Diabetes mellitus 02/12/13 E11.9 Medical History Medical History History of ankle fracture 04/17/12 closed reduction History of fracture of ankle Numbness 02/26/13 Numbness (02/26/13) Surgical History Surgical History Colonoscopy - MAC (03/05/13) [facility] Fracture, Closed Treatment (11/16/12) ANKLE H/O colonoscopy Dr Spangler, negative, repeat in five years due to family history of colon cancer. History of hysterectomy 04/17/83 History of hysterectomy Hysterectomy, Laproscopic (~1983) Tobacco Smoking/Tobacco Use Status: Never Passive smoking exposure: Yes Second hand exposure: Yes Alcohol Alcohol Intake: current Alcohol intake frequency: a few times a month Alcohol type: beer Substance Use Substance use: Never Substance use type: does not use Vital Signs and Lab Results Vital Signs Most Recent Vital Signs in EMR: Most Recent Vital Signs Temp Pulse Resp BP Pulse Ox 36.1 C L 82 16 122/61 100 12/02/22 06:42 12/02/22 06:42 12/02/22 06:42 12/02/22 06:42 12/02/22 06:42 Lab Results Blood Type / Crossmatch: No Data to Display Complete Blood Count: No Data to Display Complete Metabolic Panel: Hemoglobin A1c 6.9 % H 11/07/22 10:02 Liver Function Panel: No Data to Display Coagulation Panel: No Data to Display Cardiac Panel: No Data to Display Arterial Blood Gas: No Data to Display Venous Blood Gas: No Data to Display Pancreas Panel: No Data to Display Thyroid Panel: No Data to Display Infectious Disease: No Data to Display Blood Cultures: No Data to Display Toxicology Panel: No Data to Display Imaging and Studies Imaging and Studies Study information below may be from another EMR and interpreted by another provider. Please see original notes in EMR for more complete details. Echocardiogram Summary: ECHOCARDIOGRAM REPORT PATIENT NAME: IRA NARVAEZ AUNIT #: [id number] ADMITTING PROVIDER: SAVANAH COLEMAN, BETSEYCOUNT #: [id number] PRIMARY CARE PROVIDER:DEANA WILLIAM MD, DCDATE OF SERVICE: 04/05/13 : 1955 DATE: April 05, 2013 OUT-PATIENT ORDERING PHYSICIAN: Dr. Deana William HEIGHT: 5 FT 6 IN WEIGHT: 200 LBS BSA: m2 STUDY INDICATIONS: Cerebrovascular accident, right sided weakness/numbness, 02/04/13. Hypertension. Borderline type II diabetes mellitus. FINDINGS: LEFT VENTRICLE/LVEF: Normal function. Ejection fraction 60-65%, mild concentric left ventricular hypertrophy. RIGHT VENTRICLE: Appears normal. AORTIC VALVE: [place], mildly sclerotic, no aortic regurgitation, no aortic stenosis, normal aortic root size. MITRAL VALVE: No mitral regurgitation, no mitral stenosis. TRICUSPID VALVE: Normal. RSV/PA/RIGHT ATRIAL PRESSURE: 10 + 5 = 15 mmHg. PULMONIC VALVE: Normal. ATRIA: Normal size. DIASTOLIC INDICES: E/E-prime lateral 5, medial 8. GREAT VESSELS: Within normal limits, normal aortic root size. PERICARDIUM: No effusion. Summary: Normal left ventricle. Ejection fraction 60-65%. Mild concentric left ventricular hypertrophy, no significant valvular abnormality. Normal atria. No previous study. Measurements: LVESD 23 mm LVEDD 39 mm IVS 10 mm PW 11 mm Ascending Aorta 33 mm AO. Root 34 mm AV 19 mm AO Velocity 1.4 m/sec LA 15 cm sq. RA 12 cm sq. Right atrial pressure 10 mmHg AV-PK/M 8/5 mmHg LVOT size 19 mm LVOT gradient 5/3 mmHg Deceleration time 164 msec Isovolumic relaxation time 83 msec E/A ratio 1.0 IVC collapses - Yes Sinus Rhythm. Dictated by: GORDO PAVON MD Dictated:: [id number]<Electronically signed by GORDO PAVON MD> 06/12/[id number] Transcribed Date: 04/08/13 Transcribed Time: 1025By: This is privileged, confidential information, intended only for the provider named. Any use or distribution by any person other than this provider is strictly prohibited. If you receive this report in error, please notify us immediately at [phone] and return the original report to us at the address above. Thank you. Anesthesia Assessment and Plan Anesthesia History Personal History: Delayed Emergence Family History: No Family History of Anesthesia Complications Exercise Tolerance Exercise Tolerance: Metabolic Equivalents>4 Pertinent Negatives Pertinent Negatives: No Symptoms of GERD, No Major Cardiovascular Symptoms or Complaints and No Major Pulmonary Symptoms or Complaints Cardiac & Pulmonary Exam Cardiac Exam: Normal S1/S2 Heart Sounds Pulmonary Exam: Clear Bilateral Breath Sounds Implantable Cardiac Device Does patient have a Pacemaker or an ICD?: No Airway Exam Known Difficult Airway: No Mallampati Class: 2 Mouth Opening: Normal (> 3cm) Thyromental Distance: Greater than 3 cm Neck Range of Motion: Full ROM Neck Circumference: Normal Teeth Condition: Normal Dentition ASA Classification ASA Score: ASA 2 Emergency Case?: No NPO Status NPO Status: NPO Clears >2 hours, Solids >8 hours Anesthesia Plan Resuscitation Status: Full Code Anesthesia Technique: MAC Anesthesia Airway Planned: Natural Airway Monitors Used: Standard Monitors
[2022-12-02 07:03] VITALS: BMI 35.6
[2022-12-02] MEDS: Povidone-Iodine Ophth 30 ML BTL (07:29)
[2022-12-02] MEDS: Tetracaine 0.5% 4 ML BTL OD (07:29)
[2022-12-02] MEDS: Phenylephrine/Lidocaine (15/10) MG/ML 1 ML VIAL (07:31)
[2022-12-02] MEDS: Balanced Salt Soln.-PLUS 500 ML BAG OP (07:31)
[2022-12-02] MEDS: Lidocaine 1% Pres-Free 5 ML VIAL (07:31)
[2022-12-02] MEDS: Duovisc Viscoelastic System EACH 1 EACH (07:31)
--- NOTE | 2022-12-02 07:51 | W.PM.DSUDISC ---
Date of service: 12/02/22 Time of Service: 07:51 Discharge Plan Disposition Patient Disposition: Home Discharge Details Attending Provider: Raghav Birmingham Primary Care Provider: Deana William Home Meds and New Rx's Prescriptions: No Action ibuprofen 200 mg capsule 200 mg PO QID PRN (DME) OneTouch Ultra Test 1 EACH strip 1 ea Miscellaneous DAILY Qty: 100 Rx Instructions: mini test strips Dx Diabetes 250.00 (DME) lancets [OneTouch Delica Lancets] 1 EACH misc 1 ea Miscellaneous DAILY Qty: 100 aspirin [Aspirin Low-Strength] 81 MG tablet,chewable 81 mg PO DAILY cyclobenzaprine 5 mg tablet 5 mg PO TID PRN (Reason: back pain) Qty: 10 0RF hydrochlorothiazide 12.5 mg tablet 12.5 mg PO QAM Qty: 90 4RF atorvastatin 20 mg tablet 20 mg PO DAILY Qty: 90 4RF losartan 50 mg tablet 50 mg PO DAILY Qty: 90 4RF metformin 1,000 mg tablet 1,000 mg PO BID Qty: 180 12RF Rx Instructions: hold until pt calls for renewal Discharge Instructions Stand Alone Forms: Post-op Topical Cataract, Tio Plunkett (DSU) Discharge Orders Discharge Orders: Discharge Order (Routine); Ordered 12/02/22 Ordered By: Raghav Birmingham DS: Diagnosis Discharge Diagnosis (1) Posterior subcapsular age-related cataract, right eye: Status: Resolved (2) Nuclear age-related cataract, right eye: Status: Resolved
[2022-12-02 07:52] VITALS: BP 119/56; PULSE 78; RESP 16; TEMP 36.2; O2SAT 97
--- NOTE | 2022-12-02 07:52 | ROE_ITS ---
Date of service: 12/02/22 Time of Service: 07:52 Operative Note Operative Note DATE OF PROCEDURE: 12/02/22 PRE-OP DIAGNOSIS: Nuclear/posterior subcapsular cataract, right eye POST-OP DIAGNOSIS: same PROCEDURE: Cataract extraction using phacoemulsification with intraocular lens implant, right eye SURGEON: Raghav Birmingham ANESTHESIA TYPE: Local By Surgeon and MAC Refer to Anesthesia Record ESTIMATED BLOOD LOSS: 0 PATHOLOGY: none sent COMPLICATIONS: None Patient was transported to: same day Patient's condition: stable Implants: Jesus Alberto & Jesus Alberto Tecnis Eyhance DIB00 Indications: Progressive visual loss due to cataract, right eye Procedure Description: CATARACT SURGERY OPERATIVE REPORT PREOPERATIVE DIAGNOSIS: 1. Nuclear/posterior subcapsular cataract, right eye POSTOPERATIVE DIAGNOSIS: Same OPERATION: 1. Cataract extraction using phacoemulsification with posterior chamber intraocular lens implant, right eye. IOL: IOL Search Manager/Model: Jesus Alberto & Jesus Alberto Tecnis Eyhance DIB00 IOL Power: + 23.5 diopters IOL Serial Number: [id number] Optic Diameter: 6.0mm Haptic/Overall Diameter: 13.0mm PHACO INFO: Piotr Motionboxurion Vision System with OZil and Active Fluidics Cumulative Dispersed Energy (CDE): 7.60 seconds SURGEON: Raghav Birmingham MD, LEANA ANESTHESIA: Monitored Anesthesia Care (MAC), with local sub-tenon's anesthetic infiltration COMPLICATIONS: None SPECIMENS: None INDICATIONS FOR PROCEDURE: The patient is a 67-year-old lady with history of diminished visual acuity in both eyes secondary to the development of bilateral nuclear/posterior subcapsular cataract. She has already undergone cataract surgery in the left ey e and is doing well postoperatively. She now presents for cataract surgery in the right eye. See office notes for detailed information. PROCEDURE: The correct surgical eye was identified and marked as the right eye and the pupil was dilated in the preoperative area using mydriatics and cycloplegics. The dilated pupil size was 8.0 mm. The patient elected to proceed without oral sedation. The patient was brought to the operating room where cardiopulmonary monitoring was instituted and surgical time-out was performed, confirming the correct operative eye and IOL power. Topical anesthesia was administered and ophthalmic povidone-iodine 5% was instilled into the conjunctival fornices. The judson-ocular area was prepped with Betadine 10% solution and draped in the usual sterile fashion for intraocular surgery, including an aperture drape. A Tegaderm transparent film dressing was cut in half and used to cover the lashes and lid margins. Care was taken to sequester the lashes and lid margins under the Tegaderm dressing. A lid speculum was placed between the lids of the operative eye and the Piotr LuxOR Revalia operating microscope was maneuvered into position. Ton scissors were then used to make a conjunctival buttonhole approximately 6mm posterior to the limbus in the inferonasal quadrant. Blunt dissection was carried out to expose bare sclera, and a blunt-tipped sub-tenon?s anesthesia cannula was introduced and passed posteriorly along the globe where non- preserved plain lidocaine was injected into posterior sub-Tenon?s space. A sideport knife was used to make a paracentesis port. Intraocular phenylephrine/lidocaine was injected into the anterior chamber. The anterior chamber was filled with viscoelastic. A keratome knife was used to construct a 2-plane clear corneal tunnel extending 2.0mm into clear cornea. A flap was raised on the anterior capsule and capsulorhexis forceps were used to complete a continuous curvilinear capsulorhexis of 5.0 mm. Balanced salt solution was then used to perform cortical cleaving hydrodissection and nuclear hydrodelineation until the lens could be freely rotated within the capsular bag. The lens nucleus was then disassembled and removed within the capsular bag and iris plane using phacoemulsification. Residual cortical material was removed using the I/A handpiece. The posterior capsule was carefully polished to remove as much residual lens epithelial cells as safely possible. The capsular bag was then inflated and the anterior chamber deepened with cohesive viscoelastic. The lens implant described above was inserted into the capsular bag using the Jesus Alberto and Jr Simplicity pre- loaded injector. A Kuglen hook was used to dial the IOL into position. Residual viscoelastic was then removed first from posterior to the IOL, then from the anterior chamber using the I/A handpiece. The lens implant was noted to center nicely within the capsular bag. The incisions were stromally hydrated, and the anterior chamber was reformed using BSS. Then 0.5cc of moxifloxacin 1.0mg/ml were injected into the capsular bag and anterior chamber. The incisions were checked with a Weck spear and found to be secure. Several drops of ophthalmic povidone-iodine 5% were then applied to the eye followed by two drops of Imprimis combination prednisolone/moxifloxacin/nepafenac solution. The drapes were removed and a clear plastic protective eye shield was placed over the eye. The patient was then returned to Same Day Surgery in stable condition.
--- NOTE | 2022-12-02 08:08 | W.ANESPOSTOP ---
Postoperative Evaluation Date, Time and Location Date Performed: 12/02/22 Time Performed: 07:55 Patient Location: Day Surgery Unit Vital Signs Most Recent Imported Vital Signs: Most Recent Vital Signs Temp Pulse Resp BP Pulse Ox 36.2 C L 78 16 119/56 L 97 12/02/22 07:52 12/02/22 07:52 12/02/22 07:52 12/02/22 07:52 12/02/22 07:52 Pain Score Most Recent Pain Score: Most Recent Pain Score Pain Level 0 12/02/22 07:52 Assessment Mental Status: Awake (Alert & Oriented to Patient Baseline) Airway and Respiratory Function: Patent airway with normal (patient baseline) respiratory exam Cardiovascular Function: Hemodynamically Stable Hydration Status: Adequately Hydrated Nausea & Vomiting: No Nausea or Vomiting Pain: Pt. Denies Any Pain Peripheral Nerve Block: Patient did not receive a nerve block
== END 2022-12-02 08:07 | disposition home or self-care (01) ==
LOC: SUR 06:31
PROVIDERS: PCP Family Medicine; Visit Provider Ophthalmology
PROC: (CPT 66984; principal; 2022-12-02 07:30)
DX: H25.041 Posterior subcapsular polar age-related cataract, right eye (principal); H25.11 Age-related nuclear cataract, right eye; I10 Essential (primary) hypertension; E11.9 Type 2 diabetes mellitus without complications
CPT/HCPCS: 66984; V2632

== ENCOUNTER 2022-12-13 13:14 | Outpatient (REF) | payer MEDICARE, OTHER, SELFPAY ==
[2022-12-13 22:21] LABS: COMMENT (LAB VIEW ONLY) 119.61 mg/dL; Microalb ug/mg Crea 7.2 ug/mg Cr
== END 2022-12-13 13:15 | disposition home or self-care (01) ==
LOC: LBN 13:14
PROVIDERS: PCP Family Medicine; Visit Provider Family Medicine
DX: E11.9 Type 2 diabetes mellitus without complications (principal)
CPT/HCPCS: 82043; 82570

== ENCOUNTER → 2022-12-22 03:44 | Outpatient (CLI) | payer MEDICARE, OTHER, SELFPAY ==
--- NOTE | 2022-12-22 07:30 | DI.DEXA_ITS ---
Exam(s) XR DEXA BONE DENSITY W/WO ROCKY EXAM: XR DEXA BONE DENSITY W/WO ROCKY CLINICAL HISTORY: SCREENING FOR OSTEOPOROSIS IN POSTMENOPAUSAL WOMAN,Z78.0 TECHNIQUE: COMPARISON: No exams were available for comparison FINDINGS: Lateral Spine Image: Unremarkable. No compression deformities identified. Left hip: Total T-Score: 1.2 Total Z-Score: 2.6 T- and Z-scores: Within normal limits. Lumbar Spine: Total T-Score: 3.2 Total Z-Score: 5.1 T- and Z-scores: Within normal limits. IMPRESSION: No evidence of osteoporosis.
== END ==
PROVIDERS: PCP Family Medicine; Visit Provider Family Medicine
DX: Z78.0 Asymptomatic menopausal state (principal); Z13.820 Encounter for screening for osteoporosis
CPT/HCPCS: 36415; 77080; 80053; 80061

== ENCOUNTER 2022-12-22 04:21 | Outpatient (CLI) | payer MEDICARE, OTHER, SELFPAY ==
[2022-12-22 09:52] LABS: ALT 36 U/L (14-59); AST 21 U/L (15-37); Albumin 3.5 g/dL (3.4-5.0); Alkaline Phosphatase 84 U/L (46-116); Anion Gap 9.8 mmol/L (3-11); BUN 13 mg/dL (7-18); Bilirubin, Total 0.8 mg/dL (0.2-1.0); CO2 28.2 mmol/L (21.0-32.0); CREATININE 0.9 mg/dL (0.55-1.02); Calcium 9.2 mg/dL (8.5-10.1); Calculated LDL 81 mg/dL (<100); Chloride 104 mmol/L (98-107); Cholesterol 153 mg/dL (<200); Estimated GFR 70.07 (mL/min/1.73m2); Glucose 119 mg/dL (74-106); HDL Cholesterol 49 mg/dL (40-60); Potassium 3.7 mmol/L (3.5-5.1); Sodium 142 mmol/L (136-145); Total Protein 6.6 g/dL (6.4-8.2); Triglyceride 116 mg/dL (<150)
== END 2022-12-22 04:22 | disposition home or self-care (01) ==
LOC: LBO 04:22
PROVIDERS: PCP Family Medicine; Visit Provider Family Medicine
DX: I10 Essential (primary) hypertension (principal)
CPT/HCPCS: 36415; 80053; 80061

== ENCOUNTER → 2023-01-12 07:51 | Outpatient (BNVA) | payer MEDICARE, OTHER, SELFPAY | PROVIDERS: PCP Family Medicine; Referring Provider Family Medicine; Visit Provider Physical Therapy Assistant | DX: Z12.11 Encounter for screening for malignant neoplasm of colon (principal); Z80.0 Family history of malignant neoplasm of digestive organs ==

== ENCOUNTER → 2023-01-19 03:41 | Outpatient (CLI) | payer MEDICARE, OTHER, SELFPAY ==
--- NOTE | 2023-01-19 08:36 | DI.MAMMO_ITS ---
Exam(s) MAMMO SCREENING EXAM: MAMMO SCREENING CLINICAL HISTORY: screening,z12.39. TECHNIQUE: Bilateral full field digital CC and MLO mammographic images were obtained with 3D tomosyn thesis and utilizing computer aided detection (CAD). COMPARISON: Prior mammograms were reviewed. Prior ultrasound of January 2021 reviewed. FINDINGS: Fibroglandular tissue pattern is again noted be moderately dense, somewhat decreasing the sensitivity of the mammogram for finding hidden underlying lesions. There are no new left breast findings. In the right breast previously described nodular density located medially is unchanged, this having s hown to be a small conglomeration of benign microcysts at the 4 o'clock position on ultrasound examin ation of January 2021. There are no new spiculated masses nor malignant-appearing microcalcification groups in either breast . There is no significant architectural distortion nor skin thickening-retraction. IMPRESSION: No radiographic evidence of malignancy. Stable benign-appearing findings. BI-RADS Category 2 - Benign Findings Breast Density - Category C - Heterogeneously dense Breast density Category C or D implies that the patient has dense breast tissue. Dense breast tissue can make it harder to find cancer on a mammogram. Dense breast tissue is also associated with an incr eased risk of breast cancer. This information about the result of the mammogram report was provided to the patient to raise their awareness. Use this report when you speak with the patient about their risks for breast cancer, which includes their family history. At that time, you may recommend additional screening tests (Ultrasoun d or MRI) as these tests may add significant information. A negative radiographic report should not delay biopsy if a dominant or clinically suspicious mass is present. Up to ten percent of cancers are not identified on mammography. A negative report may reinforce clinical impression. Adenosis and dense breasts may obscure an underlying neoplasm. False positive reports average 6 to 10%. Patient will receive a letter notifying them of these results.
== END ==
PROVIDERS: PCP Family Medicine; Visit Provider Family Medicine
DX: Z12.31 Encounter for screening mammogram for malignant neoplasm of breast (principal)
CPT/HCPCS: 77063; 77067

== ENCOUNTER 2023-02-02 07:42 | Day surgery (SDC) | payer MEDICARE, OTHER, SELFPAY ==
[2023-02-02 07:50] VITALS: BP 157/73; PULSE 85; RESP 16; TEMP 36.2; O2SAT 97
[2023-02-02] MEDS: Lactated Ringers 1,000 ML 80 ML IV (08:28)
--- NOTE | 2023-02-02 08:47 | W.ANESPRE ---
General Info Date of Service Date Performed: 02/02/23 Height: 5 ft 6 in Weight: 96.7 kg Body Mass Index (BMI): 34.4 Surgical Procedure: Operation Date: 02/02/23 09:05 Proposed Procedure Side Surgeon p Maria Antonia Ohara MD Meds Allergies and Home Medications Allergies Allergy/AdvReac Type Severity Reaction Status Date / Time lisinopril AdvReac Intermediate cough Verified 02/02/23 07:49 oxycodone HCl [From Percocet] AdvReac Mild Nausea Verified 02/02/23 07:49 Home Medication Medication Instructions Recorded blood sugar diagnostic (GreenCage SecurityTouch #100 strips 02/21/13 Ultra Test strips) lancets 33 gauge (OneTouch Delica #100 ea 02/21/13 Lancets) aspirin 81 mg chewable tablet 81 mg PO DAILY 04/15/13 (Aspirin Low-Strength) ibuprofen 200 mg capsule 200 mg PO QID PRN 02/28/18 hydrochlorothiazide 12.5 mg tablet 12.5 mg PO QAM #90 tabs 11/24/22 losartan 50 mg tablet 50 mg PO DAILY #90 tabs 11/24/22 metformin 1,000 mg tablet 1,000 mg PO BID #180 tab-caps 11/24/22 diphth,pertus(acell),tetanus 2.5 0.5 ml IM ONCE #0.5 mL 12/13/22 Lf unit-8 mcg-5 Lf/0.5mL IM syringe pneumoc 20-tomasz conj-dip cr(PF) 0.5 0.5 ml IM ONCE #0.5 mL 12/13/22 mL IM syringe bisacodyl 5 mg tablet,delayed 5 mg PO ONCE Colonoscopy Bowel 01/12/23 release (Dulcolax (bisacodyl)) Prep #4 tabs polyethylene glycol 3350 17 238 g PO ONCE Colonoscopy Bowel 01/12/23 gram/dose oral powder Prep #238 grams atorvastatin 20 mg tablet 20 mg PO HS 02/01/23 Current Visit Medications: Current Medications Generic Name Dose Route Start Last Admin Trade Name Freq PRN Reason Stop Dose Admin Ringer's Solution 1,000 mls @ 80 mls/hr 02/02/23 06:00 02/02/23 08:28 IV 03/03/23 23:59 80 mls/hr INFUSION NASEEM Administration IV Miscellaneous Supplies 1 each 02/02/23 06:00 Iv Access IV 03/03/23 23:59 DIRECTED NASEEM Sodium Chloride 0 ml 02/02/23 06:00 Normal Saline Flush 10 Ml Syr IV 03/03/23 23:59 PRN PRN Sodium Chloride 0 ml 02/02/23 06:00 Normal Saline 10 Ml Vial IJ 03/03/23 23:59 DIRECTED PRN Sterile Water 0 ml 02/02/23 06:00 Water,Injection,Sterile 10 Ml Vial IJ 03/03/23 23:59 DIRECTED PRN PFSH Active Problems Active Problems: Problem Status Onset Code Abnormal colonoscopy R93.3 Posterior subcapsular age-related cataract, right eye H25.041 Nuclear age-related cataract, right eye H25.11 Posterior subcapsular age-related cataract of left eye H25.042 Nuclear age-related cataract, left eye H25.12 Abnormal mammogram R92.8 Shoulder pain M25.519 Left arm pain M79.602 Annual physical exam Z00.00 Family history of colon cancer in father Z80.0 Lacunar infarction 02/28/13 I63.9 Internal hemorrhoids without complication 03/06/13 K64.8 Hypercholesterolemia 02/28/13 E78.00 Essential hypertension 06/25/13 I10 Diverticulosis of large intestine without diverticulitis 03/06/13 K57.30 Diabetes mellitus 02/12/13 E11.9 Medical History Medical History History of ankle fracture 04/17/12 closed reduction History of fracture of ankle Numbness 02/26/13 Numbness (02/26/13) Surgical History Surgical History Colonoscopy - MAC (03/05/13) [facility] Fracture, Closed Treatment (11/16/12) ANKLE H/O colonoscopy Dr Spangler, negative, repeat in five years due to family history of colon cancer. History of hysterectomy 04/17/83 History of hysterectomy Hysterectomy, Laproscopic (~1983) Tobacco Smoking/Tobacco Use Status: Never Passive smoking exposure: Yes Second hand exposure: Yes Alcohol Alcohol Intake: current Alcohol intake frequency: holidays/special occasions only Alcohol type: beer Substance Use Substance use: Never Substance use type: does not use Vital Signs and Lab Results Vital Signs Most Recent Vital Signs in EMR: Most Recent Vital Signs Temp Pulse Resp BP Pulse Ox 36.2 C L 85 16 157/73 H 97 02/02/23 07:50 02/02/23 07:50 02/02/23 07:50 02/02/23 07:50 02/02/23 07:50 Point of Care Results Point of Care Results: Finger Stick Blood Glucose 153 02/02/23 08:04 Lab Results Blood Type / Crossmatch: No Data to Display Complete Blood Count: No Data to Display Complete Metabolic Panel: No Data to Display Liver Function Panel: No Data to Display Coagulation Panel: No Data to Display Cardiac Panel: No Data to Display Arterial Blood Gas: No Data to Display Venous Blood Gas: No Data to Display Pancreas Panel: No Data to Display Thyroid Panel: No Data to Display Infectious Disease: No Data to Display Blood Cultures: No Data to Display Toxicology Panel: No Data to Display Imaging and Studies Imaging and Studies Study information below may be from another EMR and interpreted by another provider. Please see original notes in EMR for more complete details. Echocardiogram Summary: ECHOCARDIOGRAM REPORT PATIENT NAME: IRA NARVAEZ AUNIT #: [id number] ADMITTING PROVIDER: SAVANAH COLEMAN, MYAMACCOUNT #: [id number] PRIMARY CARE PROVIDER:DEANA WILLIAM MD, DCDATE OF SERVICE: 04/05/13 : 1955 DATE: April 05, 2013 OUT-PATIENT ORDERING PHYSICIAN: Dr. Deana William HEIGHT: 5 FT 6 IN WEIGHT: 200 LBS BSA: m2 STUDY INDICATIONS: Cerebrovascular accident, right sided weakness/numbness, 02/04/13. Hypertension. Borderline type II diabetes mellitus. FINDINGS: LEFT VENTRICLE/LVEF: Normal function. Ejection fraction 60-65%, mild concentric left ventricular hypertrophy. RIGHT VENTRICLE: Appears normal. AORTIC VALVE: Trileaflet, mildly sclerotic, no aortic regurgitation, no aortic stenosis, normal aortic root size. MITRAL VALVE: No mitral regurgitation, no mitral stenosis. TRICUSPID VALVE: Normal. RSV/PA/RIGHT ATRIAL PRESSURE: 10 + 5 = 15 mmHg. PULMONIC VALVE: Normal. ATRIA: Normal size. DIASTOLIC INDICES: E/E-prime lateral 5, medial 8. GREAT VESSELS: Within normal limits, normal aortic root size. PERICARDIUM: No effusion. Summary: Normal left ventricle. Ejection fraction 60-65%. Mild concentric left ventricular hypertrophy, no significant valvular abnormality. Normal atria. No previous study. Measurements: LVESD 23 mm LVEDD 39 mm IVS 10 mm PW 11 mm Ascending Aorta 33 mm AO. Root 34 mm AV 19 mm AO Velocity 1.4 m/sec LA 15 cm sq. RA 12 cm sq. Right atrial pressure 10 mmHg AV-PK/M 8/5 mmHg LVOT size 19 mm LVOT gradient 5/3 mmHg Deceleration time 164 msec Isovolumic relaxation time 83 msec E/A ratio 1.0 IVC collapses - Yes Sinus Rhythm. Dictated by: GORDO PAVON MD Dictated:: [id number]<Electronically signed by GORDO PAVON MD> 06/12/139904 Transcribed Date: 04/08/13 Transcribed Time: 1025By: This is privileged, confidential information, intended only for the provider named. Any use or distribution by any person other than this provider is strictly prohibited. If you receive this report in error, please notify us immediately at [phone] and return the original report to us at the address above. Thank you. Anesthesia Assessment and Plan Anesthesia History Personal History: Delayed Emergence Family History: No Family History of Anesthesia Complications Exercise Tolerance Exercise Tolerance: Metabolic Equivalents>4 Pertinent Negatives Pertinent Negatives: No Major Cardiovascular Symptoms or Complaints and No Major Pulmonary Symptoms or Complaints Cardiac & Pulmonary Exam Cardiac Exam: Normal S1/S2 Heart Sounds Pulmonary Exam: Clear Bilateral Breath Sounds Implantable Cardiac Device Does patient have a Pacemaker or an ICD?: No Airway Exam Known Difficult Airway: No Mallampati Class: 2 Mouth Opening: Normal (> 3cm) Thyromental Distance: Greater than 3 cm Neck Range of Motion: Full ROM Neck Circumference: Normal Teeth Condition: Normal Dentition ASA Classification ASA Score: ASA 2 Emergency Case?: No NPO Status NPO Status: NPO Clears >2 hours, Solids >8 hours Anesthesia Plan Resuscitation Status: Full Code Anesthesia Technique: General Anesthesia Airway Planned: Natural Airway Monitors Used: Standard Monitors
[2023-02-02 09:04] VITALS: BMI 34.4
--- NOTE | 2023-02-02 09:18 | BOWEL_PTH ---
PATIENT: Tamia Green LOC: [facility] U#:[id number] AGE/SX: 67/F ROOM: RE02/02/[address]: Dev Ohara : 1955 BED: DIS: 02/02/2023 SPEC #: [id number] RECD: 02/02/23 10:43 STATUS: CHERY REQ #: [id number] DARIA: 02/02/23 09:[address]: Dev Ohara DEPT: Surgical Specimen RECD BY: Chanda Medina ENTERED: 02/02/23 10:43 SP TYPE: Bowel OTHR DR: Deana William MD, DC Tissues: 1 - BIOPSY BOWEL Procedures: GROSS AND MICRO LEVEL 4 Comments: [id number]
[2023-02-02 09:34] VITALS: BP 96/55; PULSE 66; RESP 18; TEMP 36.4; O2SAT 94
--- NOTE | 2023-02-02 09:36 | W.COLOREPORT ---
Date of service: 02/02/23 Time of Service: 09:36 Colonoscopy Report Procedure Description: Procedures performed: 1. Colonoscopy with snare polypectomy x1 Preoperative diagnosis: Surveillance colonoscopy Postoperative diagnosis: Colon polyps, mild grade 1 internal hemorrhoids Surgeon: Elsy Ohara Anesthesia: Patrica Indication for procedure: Patient is a 67-year-old woman with a family history of colon cancer in her father. She is on 5-year surveillance intervals. Last colonoscopy was normal. She has no symptoms. Findings: A 3 to 5 mm sessile polyp was removed from the ascending colon with hot snare technique.? Mild grade 1 internal hemorrhoids were noted on retroflexion. Surveillance/follow-up recommendations: 3-5 years because of the family history and depending on path results. If sessile serrated or villous histology than 3 years, if a simple adenoma then 5 years. Complications: None Blood loss: Minimal Specimens:?? YES Quality of Prep:?? Good Procedure in detail: Written consent was obtained from the patient who was in agreement with the risks, benefits and indications of the procedure.? We went to the endoscopy suite and laid the patient in left lateral decubitus position.? Anesthesia was administered which was tolerated well.? A timeout was performed and when we are all in agreement we began the procedure. Digital rectal exam and visual examination was performed and within normal limits.? A well?lubricated colonoscope was advanced without difficulty all the way to the cecum identified by the ileocecal valve, and triangular folds and appendiceal orifice.? It was then slowly withdrawn.?? Retroflexion was performed in the rectum.? The findings/interventions are noted above. The scope was then removed and the patient tolerated the procedure well and was then taken back to the PACU in hemodynamically stable condition.
--- NOTE | 2023-02-02 09:38 | W.PM.DSUDISC ---
Date of service: 02/02/23 Time of Service: 09:38 Discharge Plan Disposition Patient Disposition: Home Condition: Good Discharge Details Attending Provider: Dev Ohara Primary Care Provider: Deana William Home Meds and New Rx's Prescriptions: No Action ibuprofen 200 mg capsule 200 mg PO QID PRN pneumoc 20-tomasz conj-dip cr(PF) 0.5 mL syringe 0.5 ml IM ONCE Qty: 0.5 0RF Rx Instructions: as a single dose diphth,pertus(acell),tetanus 2.5-8-5 Lf-mcg-Lf/0.5mL syringe 0.5 ml IM ONCE Qty: 0.5 0RF Rx Instructions: as a single dose bisacodyl [Dulcolax (bisacodyl)] 5 mg tablet,delayed release (DR/EC) 5 mg PO ONCE Qty: 4 0RF Rx Instructions: Colonoscopy Bowel Prep- Per Instructions polyethylene glycol 3350 17 gram/dose powder 238 g PO ONCE Qty: 238 0RF Rx Instructions: Colonoscopy Bowel Prep- Per Instructions (DME) OneTouch Ultra Test 1 EACH strip 1 ea Miscellaneous DAILY Qty: 100 Rx Instructions: mini test strips Dx Diabetes 250.00 (DME) lancets [OneTouch Delica Lancets] 1 EACH misc 1 ea Miscellaneous DAILY Qty: 100 aspirin [Aspirin Low-Strength] 81 MG tablet,chewable 81 mg PO DAILY hydrochlorothiazide 12.5 mg tablet 12.5 mg PO QAM Qty: 90 4RF losartan 50 mg tablet 50 mg PO DAILY Qty: 90 4RF metformin 1,000 mg tablet 1,000 mg PO BID Qty: 180 12RF Rx Instructions: hold until pt calls for renewal atorvastatin 20 mg tablet 20 mg PO HS Discharge Instructions Stand Alone Forms: Colonoscopy Post Instructions Activity:: Activity as Tolerated Diet:: As Tolerated DS: Diagnosis Discharge Diagnosis (1) Abnormal colonoscopy: Status: Acute Asessment and Plan: FINDINGS: A small polyp was found in your colon and removed today. It gets sent to pathology for review under microscope and depending on what kind it is will dictate when your next colonoscopy should be done. 3-5 years depending on the type because of the history of colon cancer in your father.
--- NOTE | 2023-02-02 09:39 | W.ANESPOSTOP ---
Postoperative Evaluation Date, Time and Location Date Performed: 02/02/23 Time Performed: 09:35 Patient Location: Day Surgery Unit Vital Signs Most Recent Imported Vital Signs: Most Recent Vital Signs Temp Pulse Resp BP Pulse Ox 36.2 C L 85 16 157/73 H 97 02/02/23 07:50 02/02/23 07:50 02/02/23 07:50 02/02/23 07:50 02/02/23 07:50 Pain Score Most Recent Pain Score: Most Recent Pain Score Pain Level 0 02/02/23 07:50 Assessment Mental Status: Awake (Alert & Oriented to Patient Baseline) Airway and Respiratory Function: Patent airway with normal (patient baseline) respiratory exam Cardiovascular Function: Hemodynamically Stable Hydration Status: Adequately Hydrated Nausea & Vomiting: No Nausea or Vomiting Pain: Pt. Denies Any Pain Peripheral Nerve Block: Patient did not receive a nerve block
[2023-02-02 10:04] VITALS: BP 121/76; PULSE 65; RESP 20; TEMP 36.5; O2SAT 95
== END 2023-02-02 10:40 | disposition home or self-care (01) ==
PROVIDERS: PCP Family Medicine; Visit Provider Student in an Organized Health Care Education/Training Program
PROC: 0DJD8ZZ Inspection of Lower Intestinal Tract, Via Natural or Artificial Opening Endoscopic (ICD-10-PCS; CPT 45378; principal; 2023-02-02 09:00)
DX: D12.2 Benign neoplasm of ascending colon; Z80.0 Family history of malignant neoplasm of digestive organs; K64.0 First degree hemorrhoids; K57.30 Diverticulosis of large intestine without perforation or abscess without bleeding; Z12.11 Encounter for screening for malignant neoplasm of colon
CPT/HCPCS: 45385; 00123; 38525; 88305; J2001

== ENCOUNTER 2023-06-01 04:14 | Outpatient (CLI) | payer MEDICARE, OTHER, SELFPAY ==
[2023-06-01 12:29] LABS: Hemoglobin A1C 6.5 % (<5.7)
== END 2023-06-01 04:15 | disposition home or self-care (01) ==
LOC: LBO 04:14
PROVIDERS: PCP Family Medicine; Visit Provider Family Medicine
DX: E11.9 Type 2 diabetes mellitus without complications (principal)
CPT/HCPCS: 36415; 83036

== ENCOUNTER 2023-12-20 03:03 | Outpatient (CLI) | payer MEDICARE, OTHER, SELFPAY ==
[2023-12-20 11:50] LABS: Hemoglobin A1C 6.1 % (<5.7)
[2023-12-20 11:59] LABS: COMMENT (LAB VIEW ONLY) 220.78 mg/dL; Microalb ug/mg Crea 7.3 ug/mg Cr
[2023-12-20 12:09] LABS: ALT 34 U/L (14-59); AST 19 U/L (15-37); Alkaline Phosphatase 89 U/L (46-116); BUN 19 mg/dL (7-18); Bilirubin, Total 0.92 mg/dL (0.2-1.0); CREATININE 1.1 mg/dL (0.55-1.02); Calcium 9.7 mg/dL (8.5-10.1); Calculated LDL 76 mg/dL (<100); Chloride 102 mmol/L (98-107); Cholesterol 153 mg/dL (<200); Estimated GFR 54.73 (mL/min/1.73m2); Glucose 116 mg/dL (74-106); HDL Cholesterol 48 mg/dL (40-60); Potassium 4.1 mmol/L (3.5-5.1); Sodium 141 mmol/L (136-145); Total Protein 7.3 g/dL (6.4-8.2); Triglyceride 148 mg/dL (<150)
== END 2023-12-20 03:04 | disposition home or self-care (01) ==
PROVIDERS: PCP Family Medicine; Visit Provider Family Medicine
DX: I10 Essential (primary) hypertension (principal); E11.9 Type 2 diabetes mellitus without complications
CPT/HCPCS: 36415; 80053; 80061; 82043; 82570; 83036

== ENCOUNTER 2024-01-03 03:02 | Outpatient (CLI) | payer MEDICARE, OTHER, SELFPAY ==
[2024-01-03 18:47] LABS: Hepatitis C Ab w Rflx HCV PCR Negative (Negative)
== END 2024-01-03 03:03 | disposition home or self-care (01) ==
LOC: LBO 03:03
PROVIDERS: PCP Family Medicine; Visit Provider Family Medicine
DX: Z11.59 Encounter for screening for other viral diseases (principal); Z00.00 Encounter for general adult medical examination without abnormal findings
CPT/HCPCS: 36415; 86803

== ENCOUNTER 2024-06-20 03:05 | Outpatient (CLI) | payer MEDICARE, SELFPAY ==
[2024-06-20 09:47] LABS: Hemoglobin A1C 6.7 % (<5.7)
[2024-06-20 09:53] LABS: ALT 40 U/L (14-59); AST 22 U/L (15-37); Albumin 3.8 g/dL (3.4-5.0); Alkaline Phosphatase 94 U/L (46-116); Anion Gap 8.8 mmol/L (3-11); BUN 28 mg/dL (7-18); Bilirubin, Total 0.62 mg/dL (0.2-1.0); CO2 28.2 mmol/L (21.0-32.0); CREATININE 1.3 mg/dL (0.55-1.02); Calcium 9.7 mg/dL (8.5-10.1); Calculated LDL 78 mg/dL (<100); Chloride 104 mmol/L (98-107); Cholesterol 157 mg/dL (<200); Estimated GFR 44.79 (mL/min/1.73m2); Glucose 154 mg/dL (74-106); HDL Cholesterol 48 mg/dL (>or=50); Sodium 141 mmol/L (136-145); Total Protein 7.1 g/dL (6.4-8.2); Triglyceride 159 mg/dL (<150)
== END 2024-06-20 03:06 | disposition home or self-care (01) ==
PROVIDERS: PCP Family Medicine; Visit Provider Family Medicine
DX: I10 Essential (primary) hypertension (principal); E11.9 Type 2 diabetes mellitus without complications
CPT/HCPCS: 36415; 80053; 80061; 83036

== ENCOUNTER 2024-10-03 01:03 | Outpatient (CLI) | payer MEDICARE, SELFPAY ==
[2024-10-03 11:20] LABS: Anion Gap 7.1 mmol/L (3-11); BUN 20 mg/dL (7-18); CO2 30.9 mmol/L (21.0-32.0); CREATININE 0.9 mg/dL (0.55-1.02); Calcium 9.5 mg/dL (8.5-10.1); Chloride 103 mmol/L (98-107); Estimated GFR 69.64 (mL/min/1.73m2); Glucose 121 mg/dL (74-106); Sodium 141 mmol/L (136-145)
== END 2024-10-03 01:04 | disposition home or self-care (01) ==
LOC: LBO 01:03
PROVIDERS: PCP Family Medicine; Visit Provider Family Medicine
DX: R79.89 Other specified abnormal findings of blood chemistry (principal)
CPT/HCPCS: 36415; 80048

== ENCOUNTER 2025-01-14 02:43 | Outpatient (CLI) | payer MEDICARE, SELFPAY ==
[2025-01-14 12:50] LABS: Hemoglobin A1C 6.4 % (<5.7)
[2025-01-14 13:26] LABS: ALT 37 U/L (14-59); AST 20 U/L (15-37); Albumin 4.0 g/dL (3.4-5.0); Alkaline Phosphatase 81 U/L (46-116); Anion Gap 10.6 mmol/L (3-11); BUN 26 mg/dL (7-18); Bilirubin, Total 1.0 mg/dL (0.2-1.0); CO2 27.4 mmol/L (21.0-32.0); Calcium 9.1 mg/dL (8.5-10.1); Calculated LDL 81 mg/dL (<100); Chloride 102 mmol/L (98-107); Cholesterol 147 mg/dL (<200); Estimated GFR 49.00 (mL/min/1.73m2); Glucose 111 mg/dL (74-106); HDL Cholesterol 44 mg/dL (>or=50); Potassium 4.1 mmol/L (3.5-5.1); Sodium 140 mmol/L (136-145); Total Protein 7.1 g/dL (6.4-8.2); Triglyceride 112 mg/dL (<150)
== END 2025-01-14 02:44 | disposition home or self-care (01) ==
LOC: LBO 02:43
PROVIDERS: PCP Family Medicine; Visit Provider Family Medicine
DX: E11.9 Type 2 diabetes mellitus without complications (principal); I10 Essential (primary) hypertension
CPT/HCPCS: 36415; 80053; 80061; 83036

== ENCOUNTER 2025-01-30 09:39 | Outpatient (REF) | payer MEDICARE, SELFPAY ==
[2025-01-30 15:44] LABS: COMMENT (LAB VIEW ONLY) 117.89 mg/dL; Microalb ug/mg Crea 5.3 ug/mg Cr
== END 2025-01-30 09:40 | disposition home or self-care (01) ==
LOC: LBN 09:39
PROVIDERS: PCP Family Medicine; Visit Provider Family Medicine
DX: E11.9 Type 2 diabetes mellitus without complications (principal)
CPT/HCPCS: 82043; 82570

== ENCOUNTER 2025-02-11 01:00 | Outpatient (CLI) | payer MEDICARE, SELFPAY ==
--- NOTE | 2025-02-11 08:15 | DI.MAMMO_ITS ---
Exam(s) MAMMO SCREENING EXAM: MAMMO SCREENING CLINICAL HISTORY: screening,Z12.39. TECHNIQUE: Bilateral full field digital CC and MLO mammographic images were obtained with 3D tomosynthesis and utilizing computer aided detection (CAD). COMPARISON: Prior mammograms were reviewed. FINDINGS: New left breast findings. Breast a nodular density located inferiorly the is unchanged from 2016. May represent a skin mole. There are no new spiculated masses nor new malignant appearing microcalcification groups. There is no significant architectural distortion nor skin thickening-retraction. IMPRESSION: No radiographic evidence of malignancy. Stable benign findings. BI-RADS Category 2 - Benign Findings Breast Density - Category C - The breast are heterogeneously dense, which may obscure small masses. Breast density Category C or D implies that the patient has dense breast tissue. Dense breast tissue can make it harder to find cancer on a mammogram. Dense breast tissue is also associated with an increased risk of breast cancer. This information about the result of the mammogram report was provided to the patient to raise their awareness. Use this report when you speak with the patient about their risks for breast cancer, which includes their family history. At that time, you may recommend additional screening tests (Ultrasound or MRI) as these tests may add significant information. A negative radiographic report should not delay biopsy if a dominant or clinically suspicious mass is present. Up to ten percent of cancers are not identified on mammography. A negative report may reinforce clinical impression. Adenosis and dense breasts may obscure an underlying neoplasm. False positive reports average 6 to 10%. Patient will receive a letter notifying them of these results.
== END 2025-02-11 01:20 ==
LOC: DI 01:00
PROVIDERS: PCP Family Medicine; Visit Provider Family Medicine
DX: Z12.31 Encounter for screening mammogram for malignant neoplasm of breast (principal)
CPT/HCPCS: 77063; 77067